=== PATIENT | male | born 1985 | race Hispanic/Latino ===

== ENCOUNTER 2023-06-27 20:22 | Emergency (ER) | payer SELFPAY ==
[2023-06-27] MEDS ORDERED: Ketorolac Tromethamine 30 MG (1 mL) VIAL ONE (21:09)
[2023-06-27] MEDS ORDERED: Orphenadrine Citrate 60 MG/2 ML VIAL ONE (21:09)
== END 2023-06-27 21:31 | disposition home or self-care (01) ==
LOC: ERS 20:22
DX: M54.50 Low back pain, unspecified (principal)
CPT/HCPCS: 96372; 99283; J1885; J2360

== ENCOUNTER 2023-07-15 08:10 | Emergency (ER) | payer SELFPAY | END 2023-07-15 08:52 | disposition home or self-care (01) | LOC: ERS 08:10 | DX: L23.7 Allergic contact dermatitis due to plants, except food (principal) | CPT/HCPCS: 99282 ==

== ENCOUNTER 2023-07-24 14:16 | Emergency (ER) | payer SELFPAY ==
[2023-07-24] MEDS ORDERED: methylPREDNISolone Sod Succ 40 MG VIAL ONE ×3 (15:34→15:42)
== END 2023-07-24 16:22 | disposition home or self-care (01) ==
LOC: ERS 14:16
DX: L25.9 Unspecified contact dermatitis, unspecified cause (principal)
CPT/HCPCS: 96372; 99282; J2920

== ENCOUNTER 2025-05-15 18:09 | Emergency (ER) | payer SELFPAY ==
[2025-05-15 18:43] LABS: #Basophils 0.04 10x3/uL (0.0-0.2); #Eosinophils 0.34 10x3/uL (0.0-0.7); #Monocytes 0.68 10x3/uL (0.11-0.59); #Neutrophils 5.89 10x3/uL (1.40-6.50); %Basophils 0.4 % (0.0-1.0); %Eosinophils 3.5 % (0.0-10.0); %Lymphocytes 27.7 % (21.0-51.0); %Monocytes 7.0 % (0.0-10.0); %Neutrophils 60.4 % (42.0-75.0); Hematocrit 45.5 % (42.0-52.0); Hemoglobin 15.2 g/dL (14.0-18.0); Mean Corpuscular Hemoglobin 28.6 pg (27.0-31.0); Mean Corpuscular Volume 85.7 fL (78.0-98.0); Platelet Count 244 10x3/uL (130-400); Red Blood Cell (RBC) Count 5.31 mill/uL (4.70-6.10); White Blood Cell (WBC) Count 9.75 10x3/uL (4.8-10.8)
[2025-05-15 19:02] LABS: ALT (SGPT) 21 U/L (Less than 45); AST (SGOT) 19 U/L (11-34); Albumin 3.9 g/dL (3.1-4.5); Alkaline Phosphatase 106 U/L (40-110); Anion Gap 15 mmol/L (10-20); BUN (Urea Nitrogen) 10 mg/dL (8.9-20.6); Bilirubin, Total 0.2 mg/dL (0.3-1.2); Calc. Creatinine Clearance 0 mL/min (70-130); Calcium 9.1 mg/dL (7.8-10.44); Carbon Dioxide 24 mmol/L (22-29); Chloride 105 mmol/L (98-107); Globulin 2.7 g/dL (2.4-3.5); Glucose 109 mg/dL (70-105); Potassium 4.1 mmol/L (3.5-5.1); Sodium 140 mmol/L (136-145)
[2025-05-15 19:06] LABS: Bacteria/HPF None Seen HPF (None Seen); CAUTI Indications for Culture Pelvic or flank pain; Glucose, Urine (Dipstick) Normal (Negative); Leukocyte Negative Leu/uL (Negative); Protein, Urine (Dipstick) Negative (Neg-Trace); RBC/HPF None Seen HPF (0-3); Specific Gravity, Urine 1.018 (1.002-1.036); WBC/HPF 0-3 HPF (0-3)
[2025-05-15 19:09] LABS: Urine Culture Reflex No No
== END 2025-05-15 19:45 | disposition home or self-care (01) ==
LOC: ERS 18:09
DX: R10.A2 Flank pain, left side (principal)
CPT/HCPCS: 74176; 80053; 81001; 85025